=== PATIENT | female | born 1960 | race African-American/Black ===

== ENCOUNTER 2019-07-20 13:46 | Day surgery (SDC) | payer OTHER, SELFPAY ==
[2019-07-20 14:21] VITALS: BP 144/79; PULSE 57; RESP 15; TEMP 36.2; O2SAT 99; BMI 45.1
[2019-07-20] MEDS: SODIUM CHLORIDE 0.9% 1,000 ML 200 ML IV (14:44)
--- NOTE | 2019-07-20 15:33 | PM.HP.1 ---
History of Present Illness History of Present Illness Date Patient Seen: 07/20/19 Time Patient Seen: 15:34 Chief complaint: [id number] SCREENING COLONOSCOPY Narrative: 59-year-old female here for her 1st screening colonoscopy he is completely asymptomatic. Patient History Family & Social History Family History Father Alcoholism Mother Obesity Social History: household members spouse Meds Home Medications and Allergies Home Medications Medication Instructions Recorded Confirmed Type Nexium Packet DAILY #0 04/11/17 History naproxen sodium [Aleve] PRN #0 04/11/17 History donepezil [Aricept] 0 PO HS #90 tab 07/17/17 Rx Synthroid 50 mcg DAILY 07/20/19 07/20/19 History omeprazole 20 mg DAILY 07/20/19 07/20/19 History Allergies Allergy/AdvReac Type Severity Reaction Status Date / Time No Known Drug Allergies Allergy Unknown Verified 07/20/19 14:45 [NO KNOWN DRUG ALLERGIES] Review of Systems Review of Systems ROS Unobtainable: All systems reviewed & are unremarkable except as noted in HPI and below Exam Vital Signs (past 8 hours): - 07/20/19 14:21 Temperature 97.2 F L Pulse Rate 57 L Respiratory Rate 15 Blood Pressure 144/79 H Pulse Oximetry 99 Oxygen Delivery Method Room Air Narrative Exam Narrative: Patient is alert and oriented resting comfortably Lungs are clear with no rales or wheezes Heart regular rhythm no murmur Abdomen soft nontender no organomegaly Rectal to be done at colonoscopy Assessment & Plan Assessment & Plan narrative: 59-year-old female here for her 1st screening colonoscopy. She is asymptomatic and has negative family history. She has no unanswered questions.
--- NOTE | 2019-07-20 16:00 | PM.OP.ENDO ---
Operative Date/Time/Diagnoses Date of procedure: 07/20/19 Time of procedure: 16:00 Pre-op diagnosis: Screening colonoscopy Post-op diagnosis: same Procedure & Clinicians Study performed: Total colonoscopy to the cecum Same procedure as scheduled: Yes Indications: Screening Surgeon: Julito Harry Procedure Notes SCOAP/Timeout: Done Procedure in detail: The patient was properly identified during surgical pause given a total of 5 mg of Versed and 200 micro g of fentanyl throughout the procedure and remained comfort the. The flexible fiberoptic colonoscope was inserted transanally to the cecum. There are no tumors no polyps no ulcerations no diverticuli. Procedure was well tolerated. Scope withdrawal time: 10 Sedation minutes: 19 Specimen(s): none sent Impression: Normal exam Post-procedure Recommendations: Colonscopy in 10 years Follow up: as needed Disposition: PACU
[2019-07-20] MEDS: MIDAZOLAM 5 MG/5 ML VIAL IV (16:01)
[2019-07-20] MEDS: fentaNYL 250 MCG/5 ML INJ IV (16:01)
[2019-07-20 16:06] VITALS: BP 122/62; PULSE 64; RESP 18; TEMP 36.4; O2SAT 100
[2019-07-20 16:10] VITALS: BP 117/67; PULSE 63; RESP 18; O2SAT 100
[2019-07-20 16:30] VITALS: BP 149/82; PULSE 60; RESP 16; O2SAT 100
== END 2019-07-20 16:45 | disposition home or self-care (01) ==
PROVIDERS: Visit Provider Surgery
PROC: 0DJD8ZZ Inspection of Lower Intestinal Tract, Via Natural or Artificial Opening Endoscopic (ICD-10-PCS; CPT 45378; principal; 2019-07-20 16:00)
DX: Z12.11 Encounter for screening for malignant neoplasm of colon (principal)
CPT/HCPCS: 45378; 99152; J2250; J3010

== ENCOUNTER → 2021-04-12 10:38 | Outpatient (CLI) | payer OTHER, SELFPAY ==
--- NOTE | 2021-04-12 10:39 | DI.RAD.S_ITS ---
PROCEDURE: XR KNEE LT 3V INDICATIONS: LEFT KNEE PAIN TECHNIQUE: 3 views of the knee were acquired. COMPARISON: None. FINDINGS: Bones: No fractures or dislocations. No suspicious bony lesions. There are tricompartmental degenerative changes with medial joint space narrowing and osteophytes of the medial compartment and patellofemoral joint. Soft tissues: No joint effusion. No suspicious soft tissue calcifications. IMPRESSION: Degenerative changes of the left knee consistent with osteoarthritis. Dictated by: Hernandez Valle M.D. on 04/12/2021 at 12:26 Approved by: Hernandez Valle M.D. on 04/12/2021 at 12:28
--- NOTE | 2021-04-12 10:39 | DI.RAD.S_ITS ---
PROCEDURE: XR ANKLE RT MIN 3V INDICATIONS: RIGHT ANKLE PAIN TECHNIQUE: 3 views of the ankle were acquired. COMPARISON: None. FINDINGS: Bones: No fractures or dislocations. Ankle mortise is normally aligned. Degenerative joint space narrowing along the distal fibulotalar articulation. No suspicious bony lesions. Soft tissues: No tibiotalar joint effusion. Achilles tendon appears normal. Prominent enthesopathy at the Achilles tendon insertion on the calcaneus. Prominent plantar and dorsal calcaneal spurs. IMPRESSION: 1. 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 2. Plantar calcaneal spur. 3. Degeneration at the lateral ankle mortise. Dictated by: Madie Cagle M.D. on 04/12/2021 at 13:11 Approved by: Madie Cagle M.D. on 04/12/2021 at 13:13
--- NOTE | 2021-04-12 10:39 | DI.RAD.S_ITS ---
PROCEDURE: XR ANKLE LT MIN 3V INDICATIONS: LEFT ANKLE PAIN TECHNIQUE: 3 views of the ankle were acquired. COMPARISON: None. FINDINGS: Bones: No fractures or dislocations. Ankle mortise is normally aligned. No suspicious bony lesions. Soft tissues: No tibiotalar joint effusion. Achilles tendon appears normal. IMPRESSION: A definite source of ankle pain is not seen. If hidden fracture is clinically suspected follow-up by CT scanning would be recommended at this time. Plantar fascia and Achilles tendon insertion spurring is incidentally noted. Dictated by: Jose Guadalupe Alcantar M.D. on 04/12/2021 at 11:41 Approved by: Jose Guadalupe Alcantar M.D. on 04/12/2021 at 11:42
--- NOTE | 2021-04-12 10:39 | DI.RAD.S_ITS ---
PROCEDURE: XR KNEE RT 3V INDICATIONS: RIGHT KNEE PAIN TECHNIQUE: 3 views of the knee were acquired. COMPARISON: None. FINDINGS: Bones: No fractures or dislocations. No suspicious bony lesions. Soft tissues: No joint effusion. No suspicious soft tissue calcifications. IMPRESSION: Large body habitus reduces quality of visualization but no definite trauma is found. Dictated by: Jose Guadalupe Alcantar M.D. on 04/12/2021 at 11:42 Approved by: Jose Guadalupe Alcantar M.D. on 04/12/2021 at 11:42
--- NOTE | 2021-04-12 10:39 | DI.RAD.S_ITS ---
PROCEDURE: XR FOOT LT MIN 3V INDICATIONS: LEFT FOOT PAIN TECHNIQUE: 3 views of the foot were acquired. COMPARISON: None. FINDINGS: Bones: No fractures or dislocations. No suspicious bony lesions. Large plantar and dorsal calcaneal bone spurs. Soft tissues: No tibiotalar joint effusion. Achilles tendon appears normal. IMPRESSION: Calcaneal bone spurs. Dictated by: Chantale Lora MD, PhD on 04/12/2021 at 11:31 Approved by: Chantale Lora MD, PhD on 04/12/2021 at 11:32
--- NOTE | 2021-04-12 10:39 | DI.RAD.S_ITS ---
PROCEDURE: XR FOOT RT MIN 3V INDICATIONS: RIGHT FOOT PAIN TECHNIQUE: 3 views of the foot were acquired. COMPARISON: None. FINDINGS: Bones: No fractures or dislocations. No suspicious bony lesions. Soft tissues: No tibiotalar joint effusion. Achilles tendon appears normal. IMPRESSION: No trauma found. There is a prominent Achilles tendon insertion spur at the posterior calcaneus and a small plantar fascia insertion spur in that area also. Minimal degenerative change found at the interphalangeal joints. No sign of stress fracture or reaction. Dictated by: Jose Guadalupe Alcantar M.D. on 04/12/2021 at 14:54 Approved by: Jose Guadalupe Alcantar M.D. on 04/12/2021 at 14:55
== END ==
PROVIDERS: PCP Internal Medicine; Referring Provider Physical Medicine & Rehabilitation; Visit Provider Physical Medicine & Rehabilitation
DX: M25.561 Pain in right knee (principal); M25.562 Pain in left knee; M25.571 Pain in right ankle and joints of right foot; M79.672 Pain in left foot; M25.572 Pain in left ankle and joints of left foot; M79.671 Pain in right foot; M77.32 Calcaneal spur, left foot; M77.31 Calcaneal spur, right foot; M72.2 Plantar fascial fibromatosis; M17.0 Bilateral primary osteoarthritis of knee; M19.079 Primary osteoarthritis, unspecified ankle and foot
CPT/HCPCS: 73562; 73610; 73630; 99215

== ENCOUNTER → 2021-04-13 11:25 | Outpatient (CLI) | payer OTHER, SELFPAY | PROVIDERS: PCP Internal Medicine; Referring Provider Podiatrist; Visit Provider Podiatrist | DX: G57.63 Lesion of plantar nerve, bilateral lower limbs (principal); M79.671 Pain in right foot; M79.672 Pain in left foot; R26.2 Difficulty in walking, not elsewhere classified | CPT/HCPCS: 95886; 95911 ==

== ENCOUNTER → 2021-10-27 10:15 | Outpatient (CLI) | payer OTHER, SELFPAY ==
--- NOTE | 2021-10-27 | DI.MG.S_ITS ---
BILATERAL DIGITAL SCREENING MAMMOGRAM 3D/2D WITH CAD: 10/27/2021 CLINICAL: Routine screening. Comparison is made to exams dated: 01/03/2016 mammogram, 01/07/2017 mammogram, and 01/05/2019 mammogram - [facility]. The tissue of both breasts is predominantly fatty. Current study was also evaluated with a Computer Aided Detection (CAD) system. No significant masses, calcifications, or other findings are seen in either breast. There has been no significant interval change. IMPRESSION: NEGATIVE There is no mammographic evidence of malignancy. A 1 year screening mammogram is recommended. This exam was interpreted at Station ID: [id number]. NOTE: For mammograms, a report in lay terms will be sent to the patient. Approximately 15% of breast malignancies will not be visualized mammographically. In the management of a palpable breast mass, a negative mammogram must not discourage biopsy of a clinically suspicious lesion. Electronically Signed By: Tad gamboa/sho:10/27/2021 15:14:20 letter sent: Normal Exam ACR BI-RADS Category 1: Negative [id number]
== END ==
PROVIDERS: PCP Internal Medicine; Referring Provider Internal Medicine; Visit Provider Internal Medicine
DX: Z12.31 Encounter for screening mammogram for malignant neoplasm of breast (principal)
CPT/HCPCS: 77063; 77067

== ENCOUNTER → 2022-11-27 12:20 | Outpatient (CLI) | payer OTHER, SELFPAY ==
--- NOTE | 2022-11-27 | DI.MG.S_ITS ---
BILATERAL DIGITAL SCREENING MAMMOGRAM 3D/2D WITH CAD: 11/27/2022 CLINICAL: Routine screening. Comparison is made to exams dated: 10/27/2021 mammogram - [facility], 01/05/2019 mammogram, and 01/07/2017 mammogram - [facility]. Both breasts are almost entirely fatty (category a/<25% glandular tissue). Current study was also evaluated with a Computer Aided Detection (CAD) system. No significant masses, calcifications, or other findings are seen in either breast. There has been no significant interval change. IMPRESSION: NEGATIVE There is no mammographic evidence of malignancy. A 1 year screening mammogram is recommended. Based on the Tyrer Cuzick model (a risk assessment model) the patient's lifetime risk is 4.4% and her 10 year risk is 2.0%. According to the ACR, ACS, and NCCN guidelines, an annual breast MRI exam along with mammogram is recommended if the patient's lifetime risk is 20% or greater. This exam was interpreted at Station ID: [id number]. NOTE: For mammograms, a report in lay terms will be sent to the patient. Approximately 15% of breast malignancies will not be visualized mammographically. In the management of a palpable breast mass, a negative mammogram must not discourage biopsy of a clinically suspicious lesion. Electronically Signed By: Tad gamboa/sho:11/27/2022 14:51:13 letter sent: Normal Exam ACR BI-RADS Category 1: Negative [id number]
== END ==
PROVIDERS: PCP Internal Medicine; Referring Provider Internal Medicine; Visit Provider Internal Medicine
DX: Z12.31 Encounter for screening mammogram for malignant neoplasm of breast (principal)
CPT/HCPCS: 77063; 77067

== ENCOUNTER → 2024-05-15 12:18 | Outpatient (CLI) | payer MEDICARE, OTHER, SELFPAY ==
--- NOTE | 2024-05-15 12:24 | DI.RAD.S_ITS ---
PROCEDURE: XR KNEE RT 3V INDICATIONS: knee djd TECHNIQUE: 3 views of the knee were acquired. COMPARISON: [facility], CR, XR KNEE LT 3V, 04/12/2021, 10:47. FINDINGS: There is a moderate tricompartmental osteoarthritic type degenerative change involving the patient's right knee with medial compartment most severely affected. No acute fracture dislocation is seen. No significant joint effusion is identified. IMPRESSION: Moderate tricompartmental osteoarthritic type degenerative change right knee with medial compartment most severely affected. Dictated by: Liam Guerrero M.D. on 05/15/2024 at 13:38 Approved by: Liam Guerrero M.D. on 05/15/2024 at 13:40
--- NOTE | 2024-05-15 12:24 | DI.RAD.S_ITS ---
PROCEDURE: XR KNEE LT 3V INDICATIONS: knee djd TECHNIQUE: 3 views of the knee were acquired. COMPARISON: [facility], CR, XR KNEE LT 3V, 04/12/2021, 10:47. FINDINGS: Three views of the left knee shows a moderate to severe degree of tricompartmental osteoarthritic degenerative change with the medial compartment most severely affected. I see no evidence for acute fracture or dislocation. No significant knee joint effusion is seen. IMPRESSION: Moderate to severe tricompartmental osteoarthritic type degenerative change with the medial compartment most severely affected. Dictated by: Liam Guerrero M.D. on 05/15/2024 at 13:36 Approved by: Liam Guerrero M.D. on 05/15/2024 at 13:38
== END ==
PROVIDERS: PCP Internal Medicine; Referring Provider Physical Medicine & Rehabilitation; Visit Provider Physical Medicine & Rehabilitation
DX: M17.0 Bilateral primary osteoarthritis of knee (principal)
CPT/HCPCS: 73562